=== PATIENT | male | born 1990 | race Caucasian/White ===

== ENCOUNTER → 2021-09-06 16:01 | Outpatient (BNVA) | payer OTHER, SELFPAY | PROVIDERS: Visit Provider Nurse Practitioner Family | DX: Z20.822 Contact with and (suspected) exposure to COVID-19 (principal) | CPT/HCPCS: 87635 ==

== ENCOUNTER → 2021-09-08 10:10 | Outpatient (BNVA) | payer OTHER, SELFPAY | PROVIDERS: Visit Provider Nurse Practitioner Family | DX: Z20.822 Contact with and (suspected) exposure to COVID-19 (principal) | CPT/HCPCS: 87426 ==

== ENCOUNTER → 2021-10-11 12:40 | Outpatient (BNVA) | payer OTHER, SELFPAY | PROVIDERS: Visit Provider Nurse Practitioner Family | DX: Z20.822 Contact with and (suspected) exposure to COVID-19 (principal) | CPT/HCPCS: 87426; 87635 ==

== ENCOUNTER → 2021-11-08 14:40 | Outpatient (BNVA) | payer OTHER, SELFPAY | PROVIDERS: Visit Provider Nurse Practitioner Family | DX: Z20.822 Contact with and (suspected) exposure to COVID-19 (principal) | CPT/HCPCS: 87426 ==

== ENCOUNTER 2021-11-11 07:16 | Outpatient (CLI) | payer OTHER, SELFPAY ==
[2021-11-11 07:46] VITALS: BP 140/87; PULSE 54; RESP 16; TEMP 36.6; O2SAT 99; BMI 32.1
[2021-11-11 08:06] VITALS: BP 126/77; PULSE 58; RESP 16; TEMP 36.5; O2SAT 98
[2021-11-11 09:08] VITALS: BP 123/83; PULSE 69; RESP 16; TEMP 36.4; O2SAT 97
== END 2021-11-11 07:17 | disposition home or self-care (01) ==
LOC: OPS 07:17
PROVIDERS: Visit Provider Nurse Practitioner Family
DX: U07.1 COVID-19 (principal)
CPT/HCPCS: 96365

== ENCOUNTER → 2023-08-09 17:17 | Outpatient (BNVA) | payer SELFPAY | PROVIDERS: Visit Provider Nurse Practitioner | DX: R06.00 Dyspnea, unspecified (principal) | CPT/HCPCS: 71046 ==